=== PATIENT | male | born 1985 | race Caucasian/White ===

== ENCOUNTER 2020-01-20 15:35 | Outpatient (REF) | payer MEDICAID, SELFPAY ==
[2020-01-22 07:36] LABS: COVID-19 RT-PCR Result NEGATIVE (Negative)
== END 2020-01-20 15:55 ==
LOC: LBO 15:35
PROVIDERS: Visit Provider Nurse Practitioner Adult Health
DX: Z20.828 Contact with and (suspected) exposure to other viral communicable diseases (principal)
CPT/HCPCS: U0003

== ENCOUNTER 2020-09-19 02:25 | Outpatient (CLI) | payer MEDICAID, SELFPAY ==
[2020-09-19 20:51] LABS: COVID-19 RT-PCR UVMMC Result Negative (Negative)
== END 2020-09-19 02:26 | disposition home or self-care (01) ==
LOC: LBO 02:26
PROVIDERS: Visit Provider Family Medicine
DX: J06.9 Acute upper respiratory infection, unspecified (principal)
CPT/HCPCS: U0003

== ENCOUNTER 2023-03-18 16:53 | Outpatient (REF) | payer BC, MEDICAID, SELFPAY ==
[2023-03-18 16:43] LABS: Abs Immature Grans 0.01 10^3/uL (0.0-0.06); Absolute Basophil Count 0.04 10^3/uL (0.0-0.2); Absolute Eosinophil Count 0.16 10^3/uL (0.0-0.7); Absolute Lymphocyte Count 1.12 10^3/uL (1.2-3.4); Absolute Monocyte Count 0.47 10^3/uL (0.1-0.8); Absolute Neutrophil Count 3.52 10^3/uL (1.2-6.7); Basophils % 0.8; HCT 42.4 % (40.0-50.0); HGB 14.9 g/dL (13.5-17.5); Immature Grans % 0.2; Lymphocytes % 21.1; MCH 30.2 pg (27.0-33.0); MCHC 35.1 % (32.0-36.0); MCV 86 fL (80-95); MPV 9.1 fL (8.0-11.0); Monocytes % 8.8; Neutrophils % 66.1; Platelet Count 223 10^3/uL (130-400); RBC 4.94 10^6/uL (4.36-5.78); RDW 11.8 % (11.8-14.1); RDW-SD 37.1 fL; WBC 5.32 10^3/uL (4.4-10.8)
[2023-03-18 17:08] LABS: ALT 19 U/L (16-63); AST 14 U/L (15-37); Albumin 4.3 g/dL (3.4-5.0); Alkaline Phosphatase 98 U/L (46-116); Anion Gap 6.9 mmol/L (3-11); BUN 10 mg/dL (7-18); CO2 27.1 mmol/L (21.0-32.0); CREATININE 0.7 mg/dL (0.70-1.30); Calcium 8.9 mg/dL (8.5-10.1); Chloride 106 mmol/L (98-107); Estimated GFR 119.46 (mL/min/1.73m2); Glucose 106 mg/dL (74-106); Potassium 4.3 mmol/L (3.5-5.1); Sodium 140 mmol/L (136-145); Total Protein 7.1 g/dL (6.4-8.2)
[2023-03-20 12:28] LABS: Lyme Ab w Rflx to Lyme Confirm Positive (Negative)
[2023-03-20 13:59] LABS: Lyme IgG Ab Positive (Negative); Lyme IgM Ab Positive (Negative)
== END 2023-03-18 16:54 | disposition home or self-care (01) ==
LOC: LBN 16:53
PROVIDERS: Visit Provider Nurse Practitioner Family
DX: R21 Rash and other nonspecific skin eruption (principal); T14.8XXA Other injury of unspecified body region, initial encounter; W57.XXXA Bitten or stung by nonvenomous insect and other nonvenomous arthropods, initial encounter
CPT/HCPCS: 80053; 86617; 85025; 86618

== ENCOUNTER 2023-05-01 21:43 | Outpatient (REF) | payer BC, MEDICAID, SELFPAY ==
[2023-05-01 21:39] LABS: Source Nasal/Nares
[2023-05-01 21:48] LABS: Abs Immature Grans 0.02 10^3/uL (0.0-0.06); Absolute Basophil Count 0.08 10^3/uL (0.0-0.2); Absolute Eosinophil Count 0.24 10^3/uL (0.0-0.7); Absolute Lymphocyte Count 1.57 10^3/uL (1.2-3.4); Absolute Neutrophil Count 5.44 10^3/uL (1.2-6.7); Eosinophils % 3.1; HCT 43.4 % (40.0-50.0); HGB 14.9 g/dL (13.5-17.5); Immature Grans % 0.3; MCH 29.9 pg (27.0-33.0); MCHC 34.3 % (32.0-36.0); MCV 87 fL (80-95); MPV 9.1 fL (8.0-11.0); Monocytes % 6.4; Neutrophils % 69.2; Platelet Count 255 10^3/uL (130-400); RBC 4.99 10^6/uL (4.36-5.78); RDW 11.9 % (11.8-14.1); RDW-SD 38.2 fL; WBC 7.85 10^3/uL (4.4-10.8)
[2023-05-01 22:03] LABS: Anion Gap 7.8 mmol/L (3-11); BUN 16 mg/dL (7-18); CO2 27.2 mmol/L (21.0-32.0); CREATININE 0.9 mg/dL (0.70-1.30); Calcium 9.1 mg/dL (8.5-10.1); Chloride 103 mmol/L (98-107); Estimated GFR 110.73 (mL/min/1.73m2); Glucose 86 mg/dL (74-106); Potassium 4.5 mmol/L (3.5-5.1); Sodium 138 mmol/L (136-145); TSH (W/Ref FT4) 0.53 uIU/mL (0.36-3.74)
[2023-05-01 22:20] LABS: COVID-19 PCR Negative (Negative)
== END 2023-05-01 21:44 | disposition home or self-care (01) ==
LOC: LBN 21:43
PROVIDERS: Visit Provider Physician Assistant Medical
DX: R52 Pain, unspecified (principal)
CPT/HCPCS: 80048; 87635; 84443; 85025